=== PATIENT | female | born 1970 | race Caucasian/White ===

== ENCOUNTER → 2021-05-13 | Outpatient (CLI) | payer OTHER | LOC: NM 08:05 | DX: R74.8 Abnormal levels of other serum enzymes (principal) | CPT/HCPCS: 78306; A9503 ==

== ENCOUNTER → 2021-06-17 | Outpatient (CLI) | payer OTHER | LOC: RAD 10:26 | DX: M51.36 Other intervertebral disc degeneration, lumbar region (principal); M47.898 Other spondylosis, sacral and sacrococcygeal region; M16.0 Bilateral primary osteoarthritis of hip | CPT/HCPCS: 72100; 73522 ==